=== PATIENT | male | born 1960 | race Caucasian/White ===

== ENCOUNTER 2018-07-14 11:10 | Emergency (ER) | payer BC ==
[~2018-07-14] VITALS: Ht 182.9 cm; Wt 104.3 kg
[2018-07-14 11:55] VITALS: BP 140/93
[2018-07-14] MEDS ORDERED: TRUVADA 200 MG1 EAC1 ORAL (12:53)
[2018-07-14] MEDS ORDERED: antiviral (12:53)
[2018-07-14 13:43] VITALS: BP 138/87
--- NOTE | 2018-07-14 13:50 | Diagnostic Imaging Report ---
Indication: Right leg edema Technique: Grayscale and duplex imaging of the lower extremity veins Comparison: 06/10/2013 Findings: Grayscale and duplex images demonstrate thrombus within one of the paired right popliteal veins. This results in incomplete compressibility. However, the vein is patent, and Doppler waveforms are within normal limits. The incompletely occlusive thrombus also involves the downstream calf veins. The amount of popliteal thrombus is actually less extensive than on the prior study of 2012, at which time this is likewise not to be chronic in nature. The femoral common femoral veins are patent, demonstrating normal color flow, compressibility, and Doppler waveforms. Incidentally noted is a knee effusion Impression: Nonocclusive chronic appearing thrombus in the right popliteal and upstream calf veins, also reported in 2013 and unchanged to slightly less extensive. No definite evidence of acute deep venous thrombosis Incidentally noted is a right knee effusion
--- NOTE | 2018-07-14 14:19 | Emergency Room Report ---
History of Present Illness General Chief Complaint: Pain Source: Patient Present Illness HPI The patient has a history of HIV and liver cirrhosis secondary to chronic hepatitis B. He is followed closely by multiple specialists. He states he does have a history of DVT. This was about 10 years ago. He states that he has had chronic intermittent swelling of his right leg. However over the past day he has noted pain in the back of his knee on the right. He denies injury. He denies recent illness. He denies fever or chills. He has no other complaints. Allergies: Uncoded Allergies: IV CONTRAST DYE (Allergy, Unknown, 07/14/18) Patient History Past Medical History: see triage record, HIV, other - cirrhosis Social History: Denies: smoking, alcohol use, drug use Reviewed Nursing Documentation: PMH: Agreed; PSxH: Agreed Review of Systems All Other Systems: negative except mentioned in HPI Physical Exam Vital Signs Date Time Temp Pulse Resp B/P (MAP) Pulse Ox O2 Delivery O2 Flow Rate FiO2 07/14/18 11:19 98.4 106 18 140/93 96 Room Air Sp02 EP Interpretation: reviewed, normal General Appearance: no apparent distress, alert, GCS 15, non-toxic Head: normocephalic, atraumatic Eyes: bilateral eye normal inspection, bilateral eye PERRL ENT: hearing grossly normal, normal pharynx, no angioedema, normal voice Neck: full range of motion, supple/symm/no masses Respiratory: no respiratory distress, no retraction, no accessory muscle use, speaking full sentences Rectal: deferred Musculoskeletal: back normal, gait/station normal, normal range of motion, calf tenderness, swelling - 1+edema RLE Neurologic: alert, oriented x3, responsive, motor strength/tone normal, sensory intact, speech normal Psychiatric: judgement/insight normal, memory normal, mood/affect normal, no suicidal/homicidal ideation Skin: normal color, no rash, warm/dry, well hydrated Medical Decision Making Diagnostic Impression: Primary Impression: Lymphedema ER Course This patient has a history of DVT. He has pain and intermittent swelling in his right lower extremity. Ultrasound of the right lower exterminate showed a chronic DVT that is re-cannulized. Otherwise, the evaluation was very benign. The patient did elevate the extremity and had significant improvement in the lymphedema. He is being followed closely by his primary care physician. At this time, I did not identify an emergency medical condition. The patient given close return precautions and follow-up instructions. CT/MRI/US Diagnostic Results CT/MRI/US Diagnostic Results : Imaging Test Ordered: US RLE: Impression See official report in electronic medical record. 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 Last Vital Signs Date Time Temp Pulse Resp B/P (MAP) Pulse Ox O2 Delivery O2 Flow Rate FiO2 07/14/18 13:43 98.4 73 18 138/87 98 Room Air Status: improved Disposition: HOME, SELF-CARE Condition: Improved Referrals: Jose Graves MD (PCP) Nida Paniagua DO Jul 14, 2018 14:19
[2018-07-14 14:29] VITALS: BP 138/87
== END 2018-07-14 14:39 | disposition home or self-care (01) ==
LOC: EMR 12:00
DX: I89.0 Lymphedema, not elsewhere classified (principal); K74.69 Other cirrhosis of liver; B18.1 Chronic viral hepatitis B without delta-agent; Z21 Asymptomatic human immunodeficiency virus [HIV] infection status; Z86.718 Personal history of other venous thrombosis and embolism
CPT/HCPCS: 93971; 99283